=== PATIENT | female | born 2000 | race Two or more races ===

== ENCOUNTER 2025-06-26 08:59 | Emergency (ER) | payer OTHER ==
[~2025-06-26] VITALS: Ht 160 cm; Wt 56.7 kg
[2025-06-26] MEDS ORDERED: PRENATE DHA SO1 EAC1 (09:26)
[2025-06-26] MEDS ORDERED: 0.9 % SODIUM CHLORIDE 1,000 ML IV STA (09:58)
[2025-06-26] MEDS ORDERED: ONDANSETRON HCL 2 MG/ML VIAL IV STA (09:59)
[2025-06-26] MEDS ORDERED: ONDANSETRON HCL 2 MG/ML VIAL ONE (10:05)
[2025-06-26 10:31] LABS: BASO % 0.5 % (0.1-1.2); EOS # 0.16 (0.04-0.54); EOS % 0.9 % (0.7-7.0); LYMPH # 1.77 (1.18-3.74); LYMPH % 10.5 % (19.3-53.1); MEAN PLATELET VOLUME 9.60 fl (9.4-12.4); MONO # 0.88 (0.24-0.82); MONO % 5.2 % (4.7-12.5); NEUT # 13.78 (1.56-6.13); NEUT % 81.8 % (34.0-71.1); RED CELL DISTRIBUTION WIDTH 12.4 % (11.6-14.4)
[2025-06-26 11:26] LABS: BUN CREA RATIO 20.0 (7.0-25.0); CREATININE SERUM 0.44 mg/dL (0.55-1.02); GFR 174.23; GLUCOSE FASTING 75.0 mg/dL (65-100); OSMOLALITY SERUM 275.0 MOSM/KG (275-295)
[2025-06-26 11:27] LABS: HCG QUANTITATIVE 17393.0 mUI/mL (1-3)
[2025-06-26 12:31] LABS: URINE APPEARANCE Clear; URINE BILIRRUBIN Negative (NEGATIVE); URINE BLOOD Negative; URINE COLOR Yellow; URINE GLUCOSE Negative (NEGATIVE); URINE KETONE Trace (NEGATIVE); URINE LEUKOCYTE Trace; URINE NITRATE Negative; URINE PROTEIN Negative (NEGATIVE); URINE UROBILINOGEN 0.2 E.U./dl
[2025-06-26 12:32] LABS: URINE BACTERIA 1207.1 uL (0.0-1933); URINE EPITHELIAL CELLS 9.0 uL (0.0-38.8); URINE RBC 2.9 uL (0.0-20.8); URINE WBC 15.8 uL (0.0-23.2)
[2025-06-26 12:52] LABS: URINE CAST 0.14 uL (0.0-1.40)
== END 2025-06-26 14:35 | disposition home or self-care (01) ==
LOC: ER 09:47
PROVIDERS: Emergency Medicine
DX: O99.612 Diseases of the digestive system complicating pregnancy, second trimester (principal); K31.89 Other diseases of stomach and duodenum; Z3A.25 25 weeks gestation of pregnancy; K29.70 Gastritis, unspecified, without bleeding; Z88.1 Allergy status to other antibiotic agents

== ENCOUNTER 2025-10-04 03:52 | Inpatient (IN) | payer OTHER ==
[~2025-10-04] VITALS: Ht 160 cm; Wt 68.9 kg
[2025-10-04] VITALS (12 sets, daily range): BP systolic 113–134; BP diastolic 61–87
[~2025-10-04 03:52] MED LIST: PRENATE DHA SO1 EAC1
[2025-10-04] MEDS ORDERED: MORPHINE SULFATE 4 MG/ML VIAL IV ONE (04:00)
[2025-10-04] MEDS ORDERED: RINGERS SOLUTION,LACTATED 1,000 ML IV SCH ×2 (04:00→08:30)
[2025-10-04 04:06] LABS: BASO % 0.5 % (0.1-1.2); EOS # 0.27 (0.04-0.54); EOS % 2.0 % (0.7-7.0); LYMPH # 2.20 (1.18-3.74); LYMPH % 16.5 % (19.3-53.1); MEAN PLATELET VOLUME 10.00 fl (9.4-12.4); MONO # 1.04 (0.24-0.82); MONO % 7.8 % (4.7-12.5); NEUT # 9.65 (1.56-6.13); NEUT % 72.6 % (34.0-71.1); RED CELL DISTRIBUTION WIDTH 12.2 % (11.6-14.4)
[2025-10-04 04:11] LABS: URINE APPEARANCE Clear; URINE BILIRRUBIN Negative (NEGATIVE); URINE BLOOD Negative; URINE COLOR Yellow; URINE GLUCOSE Negative (NEGATIVE); URINE KETONE Negative (NEGATIVE); URINE LEUKOCYTE Negative; URINE NITRATE Negative; URINE PROTEIN Negative (NEGATIVE); URINE UROBILINOGEN 1.0 E.U./dl
[2025-10-04 04:16] LABS: URINE BACTERIA 131.4 uL (0.0-1933); URINE EPITHELIAL CELLS 8.1 uL (0.0-38.8); URINE RBC 14.5 uL (0.0-20.8); URINE WBC 1.9 uL (0.0-23.2)
[2025-10-04 04:20] LABS: URINE CAST 0.00 uL (0.0-1.40)
[2025-10-04 04:24] LABS: INR 0.95
[2025-10-04 04:28] LABS: ALT/SGPT 15.0 U/L (12-78); AST/SGOT 15.0 U/L (15-37); BILIRUBIN TOTAL 0.3 mg/dL (0.3-1.2); BUN CREA RATIO 23.0 (7.0-25.0); CREATININE SERUM 0.52 mg/dL (0.55-1.02); GFR 143.68; GLOBULINA 3.1 G/DL (2.4-3.5); GLUCOSE FASTING 118.0 mg/dL (65-100); OSMOLALITY SERUM 284.0 MOSM/KG (275-295)
[2025-10-04] MEDS ORDERED: MORPHINE SULFATE 4 MG/ML VIAL IV PRN (07:15)
[2025-10-04] MEDS ORDERED: OXYTOCIN 500 ML IV SCH (17:15)
[2025-10-04] MEDS ORDERED: OXYTOCIN 1,000 ML IV SCH (20:00)
[2025-10-04] MEDS ORDERED: ACETAMINOPHEN 500 MG GEL..CAP PO PRN (20:00)
[2025-10-04] MEDS ORDERED: LIDOCAINE HCL 1% 10ML VIAL IJ ONE (21:30)
[2025-10-04] MEDS ORDERED: CHLORHEXIDINE GLUCONATE 120 ML BOTTLE TOP ONE (21:30)
[2025-10-04] MEDS ORDERED: ERYTHROMYCIN BASE OPHT 1GM EACH TUBE OP ONE (21:30)
[2025-10-05 00:42] LABS: BASO % 0.2 % (0.1-1.2); EOS # 0.00 (0.04-0.54); EOS % 0.0 % (0.7-7.0); LYMPH # 1.40 (1.18-3.74); LYMPH % 5.0 % (19.3-53.1); MEAN PLATELET VOLUME 10.60 fl (9.4-12.4); MONO # 1.53 (0.24-0.82); MONO % 5.4 % (4.7-12.5); NEUT # 24.94 (1.56-6.13); NEUT % 88.8 % (34.0-71.1); RED CELL DISTRIBUTION WIDTH 12.3 % (11.6-14.4)
[2025-10-05 08:41] VITALS: BP 120/76
[2025-10-05] MEDS ORDERED: PNV,CALCIUM 72/IRON/FOLIC ACID 1 TAB TABLET PO SCH (09:00)
[2025-10-05 17:20] VITALS: BP 109/59
[2025-10-05 23:21] VITALS: BP 107/67
[2025-10-06 09:47] VITALS: BP 120/79
== END 2025-10-06 15:18 | disposition home or self-care (01) | DRG 807 ==
LOC: OBS/DEL 03:52 → LDR 04:00 → OBS/DEL 07:01 → OB/GYN 08:27 → LDR 08:27 → OB/GYN 21:08
PROVIDERS: Student in an Organized Health Care Education/Training Program; ADMIT Specialist; ATTEND Specialist
PROC: 10E0XZZ Delivery of Products of Conception, External Approach (ICD-10-PCS; principal; 2025-10-04)
PROC: 0KQM0ZZ Repair Perineum Muscle, Open Approach (ICD-10-PCS; 2025-10-04)
PROC: 0UQG7ZZ Repair Vagina, Via Natural or Artificial Opening (ICD-10-PCS; 2025-10-04)
PROC: 0UQMXZZ Repair Vulva, External Approach (ICD-10-PCS; 2025-10-04)
PROC: 4A1HXCZ Monitoring of Products of Conception, Cardiac Rate, External Approach (ICD-10-PCS; 2025-10-04)
DX: O70.1 Second degree perineal laceration during delivery (principal); Z37.0 Single live birth; Z3A.39 39 weeks gestation of pregnancy